=== PATIENT | female | born 1970 | race Caucasian/White ===

== ENCOUNTER → 2018-07-11 | Emergency (ER) | payer MEDICAID ==
[~2018-07-11] VITALS: Ht 162.6 cm; Wt 77.1 kg
[~2018-07-11] MED LIST: ABILIFY10 MG PO; ANTIDEPRESSANT; AZITHROMYCIN 2250 MG PO; BUSPIRONE HCL10 MG PO; CELEXA20 MG PO; CYCLOBENZAPRINE10 MG PO; DEPAKOTE 250MG250 M1; DESYREL50 MG; IBUPROFEN 800800 MG PO; KEFLEX500 M1 PO; KEFLEX500 MG PO; NOHOMEMEDICATIONS; ONDANSETRON HCL4 M2 PO; PROMETHAZINE D480 ML PO; PROVENTIL HFA6.7 G1 INH; SEPTRA DS TABL1 EACH PO; TRAZODONE HCL100 MG PO; VISTARIL50 MG PO
[2018-07-11 16:40] VITALS: BP 99/46
== END ==
LOC: M.ERS 16:38
DX: L03.116 Cellulitis of left lower limb (principal); F17.210 Nicotine dependence, cigarettes, uncomplicated; Z88.5 Allergy status to narcotic agent; Z88.8 Allergy status to other drugs, medicaments and biological substances; Z90.49 Acquired absence of other specified parts of digestive tract

== ENCOUNTER 2018-08-16 11:31 | Emergency (ER) | payer OTHER, MEDICAID ==
[~2018-08-16] VITALS: Ht 162.6 cm; Wt 68.0 kg
[2018-08-16 11:40] VITALS: BP 144/80
[2018-08-16] MEDS ORDERED: ERYTHROMYCIN E3.5 G3 OPHTHALMIC (11:56)
== END 2018-08-16 12:08 | disposition home or self-care (01) ==
LOC: M.ERS 11:31
DX: H00.011 Hordeolum externum right upper eyelid (principal); Z90.49 Acquired absence of other specified parts of digestive tract; F17.200 Nicotine dependence, unspecified, uncomplicated; Z88.5 Allergy status to narcotic agent; Z88.8 Allergy status to other drugs, medicaments and biological substances